=== PATIENT | female | born 2000 | race Caucasian/White ===

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

== ENCOUNTER 2020-02-15 22:01 | Emergency (ER) | payer BC ==
[2020-02-15 22:45] VITALS: BP 126/81; PULSE 95
[2020-02-15] MEDS ORDERED: Sodium Chloride 0.9% 10 ML Syringe FLUSH PRN (22:53)
[2020-02-15] MEDS ORDERED: Dexamethasone 4 MG/ML SDV IVPUSH ONE (22:55)
[2020-02-15] MEDS ORDERED: Ondansetron 4 MG/2 ML SDV IVPUSH ONE (22:55)
[2020-02-15] MEDS ORDERED: Acetaminophen 325 MG Tab PO ONE (22:56)
[2020-02-15] MEDS ORDERED: Sodium Chloride 0.9% 1,000 ML IV SCH (23:00)
--- NOTE | 2020-02-15 23:38 | EDM.PDOC ---
ED HPI GENERAL MEDICAL PROBLEM - General Chief Complaint: Neurological Problem Stated Complaint: L SIDE WEAKNESS Time Seen by Provider: 02/15/20 22:39 Source of Information: Reports: Patient, RN Notes Reviewed - History of Present Illness INITIAL COMMENTS - FREE TEXT/NARRATIVE: 19 yr old female with onset of throbbing Celeste, numbness, weakness LUE and LLE. She is nauseated but has not been vomiting. She states she does get frequent Celeste's. She was feeling fine earlier today. She had similar sx 3 days ago but less severe and sx resolved on their own with rest and time. No cough, sore throat, fever, chills or difficulty breathing. She states she was lying in bed when sx started this evening. She first felt "warm, lightheaded like she was about to pass out" and than the Celeste and L sided sx started. Her vision was blurry but that is now back to nl. - Related Data Allergies Allergy/AdvReac Type Severity Reaction Status Date / Time No Known Allergies Allergy Verified 09/10/16 16:31 Home Meds: Home Meds Ondansetron [Zofran ODT] 4 mg PO Q6H PRN #20 tab.dis 09/10/16 [Rx] traMADol [Ultram] 50 - 100 mg PO Q6H PRN #20 tablet 09/10/16 [Rx] Past Medical History - Past Health History Medical/Surgical History: Denies Medical/Surgical History Respiratory History: Reports: Other (See Below) Other Respiratory History: sports induced asthma APPLIED RESEARCH DIRECTOR History: Reports: None Musculoskeletal History: Reports: Other (See Below) Other Musculoskeletal History: scoliosis Psychiatric History: Reports: None - Infectious Disease History Infectious Disease History: Reports: Influenza Other Infectious Disease History: influenza B 2017 - Past Surgical History Respiratory Surgical History: Reports: None Social & Family History - Caffeine Use Caffeine Use: Reports: Coffee, Energy Drinks ED ROS GENERAL - Review of Systems Review Of Systems: See Below Constitutional: Denies: Fever, Chills, Diaphoresis HEENT: Reports: Vision Change. Denies: Ear Pain, Throat Pain, Vertigo Respiratory: Denies: Shortness of Breath, Pleuritic Chest Pain, Cough Cardiovascular: Reports: Chest Pain (chest did feel tight, now better), Palpitations (gone) GI/Abdominal: Reports: Nausea. Denies: Abdominal Pain, Diarrhea, Vomiting Musculoskeletal: Reports: No Symptoms Skin: Reports: No Symptoms Neurological: Reports: Dizziness, Headache, Numbness, Tingling, Weakness. Denies: Trouble Speaking, Difficulty Walking, Change in Speech ED EXAM, NEURO - Physical Exam Exam: See Below General Appearance: Alert, No Apparent Distress Eye Exam: Bilateral Eye: PERRL, Other (EOM nl) Nose: Normal Inspection Throat/Mouth: Normal Inspection Head Exam: Atraumatic. No: Facial Swelling Neck: Supple Respiratory/Chest: No Respiratory Distress, Lungs Clear, Normal Breath Sounds Cardiovascular: Regular Rate, Rhythm GI/Abdominal: Soft, Non-Tender Neurological: Alert, Oriented x 3, Other (No facial droop, LUE and LLE weak) Back Exam: No: CVA Tenderness (L), CVA Tenderness (R) Extremities: Normal Inspection. No: Pedal Edema, Leg Pain, Redness Skin Exam: Warm, Dry, Normal Color, No Rash Course - Vital Signs Last Recorded V/S: Last Vital Signs Temp 97.2 F 02/15/20 22:41 Pulse 95 02/15/20 22:41 Resp 20 02/15/20 22:41 BP 126/81 02/15/20 22:41 Pulse Ox 99 02/15/20 22:41 - Orders/Labs/Meds Orders: Active Orders 24 hr Category Date Time Status Head wo Cont [CT] Stat Exams 02/15/20 22:54 Taken Peripheral IV Insertion Adult [OM.PC] Stat Oth 02/15/20 22:53 Ordered Labs: Laboratory Tests 02/15/20 02/15/20 02/15/20 Range/Units 22:53 23:03 23:03 WBC 12.11 H (3.98-10.04) K/mm3 RBC 5.01 (3.98-5.22) M/mm3 Hgb 14.1 (11.2-15.7) gm/dl Hct 42.8 (34.1-44.9) % MCV 85.4 (79.4-94.8) fl MCH 28.1 (25.6-32.2) pg MCHC 32.9 (32.2-35.5) g/dl RDW Std Deviation 42.4 (36.4-46.3) fL Plt Count 274 (182-369) K/mm3 MPV 9.7 (9.4-12.3) fl Neut % (Auto) 62.2 (34.0-71.1) % Lymph % (Auto) 24.4 (19.3-51.7) % [place]are % (Auto) 11.0 (4.7-12.5) % Eos % (Auto) 1.9 (0.7-5.8) Baso % (Auto) 0.3 (0.1-1.2) % Neut # (Auto) 7.53 H (1.56-6.13) K/mm3 Lymph # (Auto) 2.96 (1.18-3.74) K/mm3 Dare # (Auto) 1.33 H (0.24-0.36) K/mm3 Eos # (Auto) 0.23 (0.04-0.36) K/mm3 Baso # (Auto) 0.04 (0.01-0.08) K/mm3 Manual Slide Review Normal smear Sodium 138 (136-145) mEq/L Potassium 3.5 (3.5-5.1) mEq/L Chloride 103 (98-107) mEq/L Carbon Dioxide 30 (21-32) mEq/L Anion Gap 8.5 (5-15) BUN 9 (7-18) mg/dL Creatinine 0.9 (0.55-1.02) mg/dL Est Cr Clr Drug Dosing 97.77 mL/min Estimated GFR (MDRD) > 60 (>60) mL/min BUN/Creatinine Ratio 10.0 L (14-18) Glucose 94 (74-106) mg/dL Calcium 9.1 (8.5-10.1) mg/dL Ferritin (8-252) ng/ml Total Bilirubin 0.2 (0.2-1.0) mg/dL AST 21 (15-37) U/L ALT 19 (14-59) U/L Alkaline Phosphatase 94 (46-116) U/L Total Protein 7.4 (6.4-8.2) g/dl Albumin 3.7 (3.4-5.0) g/dl Globulin 3.7 gm/dL Albumin/Globulin Ratio 1.0 (1-2) Urine Color Light yellow (Yellow) Urine Appearance Clear (Clear) Urine pH 7.0 (5.0-8.0) Ur Specific [place] 1.015 (1.005-1.030) Urine Protein Negative (Negative) Urine Glucose (UA) Negative (Negative) Urine Ketones Negative (Negative) Urine Occult Blood Negative (Negative) Urine Nitrite Negative (Negative) Urine Bilirubin Negative (Negative) Urine Urobilinogen 0.2 (0.2-1.0) Ur Leukocyte Esterase Negative (Negative) 02/15/20 Range/Units 23:03 WBC (3.98-10.04) K/mm3 RBC (3.98-5.22) M/mm3 Hgb (11.2-15.7) gm/dl Hct (34.1-44.9) % MCV (79.4-94.8) fl MCH (25.6-32.2) pg MCHC (32.2-35.5) g/dl RDW Std Deviation (36.4-46.3) fL Plt Count (182-369) K/mm3 MPV (9.4-12.3) fl Neut % (Auto) (34.0-71.1) % Lymph % (Auto) (19.3-51.7) % [place]are % (Auto) (4.7-12.5) % Eos % (Auto) (0.7-5.8) Baso % (Auto) (0.1-1.2) % Neut # (Auto) (1.56-6.13) K/mm3 Lymph # (Auto) (1.18-3.74) K/mm3 Dare # (Auto) (0.24-0.36) K/mm3 Eos # (Auto) (0.04-0.36) K/mm3 Baso # (Auto) (0.01-0.08) K/mm3 Manual Slide Review Sodium (136-145) mEq/L Potassium (3.5-5.1) mEq/L Chloride (98-107) mEq/L Carbon Dioxide (21-32) mEq/L Anion Gap (5-15) BUN (7-18) mg/dL Creatinine (0.55-1.02) mg/dL Est Cr Clr Drug Dosing mL/min Estimated GFR (MDRD) (>60) mL/min BUN/Creatinine Ratio (14-18) Glucose (74-106) mg/dL Calcium (8.5-10.1) mg/dL Ferritin 32 (8-252) ng/ml Total Bilirubin (0.2-1.0) mg/dL AST (15-37) U/L ALT (14-59) U/L Alkaline Phosphatase (46-116) U/L Total Protein (6.4-8.2) g/dl Albumin (3.4-5.0) g/dl Globulin gm/dL Albumin/Globulin Ratio (1-2) Urine Color (Yellow) Urine Appearance (Clear) Urine pH (5.0-8.0) Ur Specific [place] (1.005-1.030) Urine Protein (Negative) Urine Glucose (UA) (Negative) Urine Ketones (Negative) Urine Occult Blood (Negative) Urine Nitrite (Negative) Urine Bilirubin (Negative) Urine Urobilinogen (0.2-1.0) Ur Leukocyte Esterase (Negative) Meds: Medications Discontinued Medications Generic Name Dose Route Start Last Admin Trade Name Freq PRN Reason Stop Dose Admin Acetaminophen 975 mg 02/15/20 22:56 02/15/20 23:23 Tylenol PO 02/15/20 22:57 975 mg NOW ONE Administration Dexamethasone 4 mg 02/15/20 22:55 02/15/20 23:24 Dexamethasone IVPUSH 02/15/20 22:56 4 mg ONETIME ONE Administration Diphenhydramine HCl 25 mg 02/16/20 00:08 02/16/20 00:24 Benadryl IVPUSH 02/16/20 00:09 25 mg ONETIME ONE Administration Sodium Chloride 1,000 mls @ 999 mls/hr 02/15/20 23:00 02/15/20 23:24 Normal Saline IV 999 mls/hr ONETIME SILVIA Administration Ketorolac Tromethamine 30 mg 02/16/20 00:15 02/16/20 00:25 Toradol IVPUSH 30 mg ONETIME SILVIA Administration Metoclopramide HCl 5 mg 02/16/20 00:08 02/16/20 00:25 Reglan IVPUSH 02/16/20 00:09 5 mg ONETIME ONE Administration Ondansetron HCl 4 mg 02/15/20 22:55 02/15/20 23:24 Zofran IVPUSH 02/15/20 22:56 4 mg ONETIME ONE Administration Sodium Chloride 10 ml 02/15/20 22:53 02/15/20 23:24 Saline Flush FLUSH 10 ml ASDIRECTED PRN Administration Keep Vein Open - Re-Assessments/Exams Free Text/Narrative Re-Assessment/Exam: 02/16/20 01:[address] was nl. upon rexam at around 22:15 numbness was almost gone, LUE and LLE weakness gone. Celeste still moderate, will give further meds for Celeste. Have also scheduled for outpatient MRI. Discharge instr. as documented. Departure - Departure Time of Disposition: 00:30 Disposition: Home, Self-Care 01 Condition: Fair Clinical Impression: Paresthesias Migraine Qualifiers: Migraine type: unspecified Status migrainosus presence: without status migr ainosus Intractability: not intractable Qualified Code(s): G43.909 - Migraine, unspecified, not intractable, without status migrainosus - Discharge Information Instructions: Migraine Headache, [id number], Paresthesia, Hyix-ne-Deap Referrals: Maggie Chung PA-C [Primary Care Provider] - Forms: ED Department Discharge Additional Instructions: Rest, you have been given sedating meds while here in the ED, no driving until noon today. Order has been submitted to radiology for MRI of head. Radiology will call you in AM to set up a time for that. Follow up with Maggie at our [facility] for results, further treatment as needed. Return to ED as needed if symptoms worsening in any way. Sepsis Event Note (ED) - Evaluation Sepsis Screening Result: No Definite Risk - Focused Exam Vital Signs: Vital Signs Temp Pulse Resp BP Pulse Ox 02/15/20 22:41 97.2 F 95 20 126/81 99 - My Orders Last 24 Hours: My Active Orders 02/15/20 22:53 Peripheral IV Insertion Adult [OM.PC] Stat 02/15/20 22:54 Head wo Cont [CT] Stat - Assessment/Plan Last 24 Hours: My Active Orders 02/15/20 22:53 Peripheral IV Insertion Adult [OM.PC] Stat 02/15/20 22:54 Head wo Cont [CT] Stat
[2020-02-16] MEDS ORDERED: diphenhydrAMINE 50 MG/ML SDV IVPUSH ONE (00:08)
[2020-02-16] MEDS ORDERED: Metoclopramide 10 MG/2 ML SDV IVPUSH ONE (00:08)
[2020-02-16] MEDS ORDERED: Ketorolac 30 MG/ML SDV IVPUSH SCH (00:15)
--- NOTE | 2020-02-16 07:34 | CT ---
Head CT Technique: Multiple axial sections through the brain were obtained. Intravenous contrast was not utilized. Comparison: No prior intracranial imaging is available Findings: Ventricles along with basal cisterns and sulci over the convexities are within normal limits for the patient's age. No abnormal parenchymal densities are seen. No evidence of intracranial hemorrhage. No midline shift or mass-effect is seen. Bone window settings were reviewed which shows no acute abnormality seen within the visualized mastoid or paranasal sinuses. No acute calvarial finding is seen. Impression: 1. Nothing acute is identified on noncontrasted CT exam. Diagnostic code #1 This report was dictated in MDT I agree with preliminary report from catherine, finalized on 02/16/20, 12:32 AM Central Daylight Time
== END 2020-02-16 00:35 | disposition home or self-care (01) ==
LOC: JD.ED 22:01
DX: G43.909 Migraine, unspecified, not intractable, without status migrainosus (principal); R20.2 Paresthesia of skin; J45.909 Unspecified asthma, uncomplicated
CPT/HCPCS: 36415; 70450; 80053; 81003; 82728; 85025; 96374; 96375; 99284; A9270; J1100; J1200; J1885; J2405; J2765; J7030

== ENCOUNTER 2022-01-30 20:06 | Emergency (ER) | payer BC ==
[2022-01-30 21:10] VITALS: BP 124/71; PULSE 67
[2022-01-30] MEDS ORDERED: Ketorolac 15 MG/ML SDV IVPUSH ONE (21:40)
[2022-01-30] MEDS ORDERED: Metoclopramide 10 MG/2 ML SDV IVPUSH ONE (21:40)
[2022-01-30] MEDS ORDERED: diphenhydrAMINE 50 MG/ML SDV IVPUSH ONE (21:40)
[2022-01-30] MEDS ORDERED: Iopamidol 755 Mg/ML 100 ML Bottle IVPUSH ONE ×2 (23:27)
[2022-01-30] MEDS ORDERED: Sodium Chloride 0.9% 100 ML IV SCH ×2 (23:30)
== END 2022-01-30 23:18 | disposition home or self-care (01) ==
LOC: JD.ED 20:06
DX: G43.909 Migraine, unspecified, not intractable, without status migrainosus (principal); R53.1 Weakness; Z79.899 Other long term (current) drug therapy
CPT/HCPCS: 36415; 70450; 70496; 70498; 80053; 82947; 83735; 85025; 93005; 96374; 96375; 99285; J1200; J1885; J2765; Q9967

== ENCOUNTER 2022-06-30 23:00 | Emergency (ER) | payer BC ==
[2022-06-30 23:10] VITALS: BP 139/101; PULSE 103
[2022-06-30] MEDS ORDERED: Ibuprofen 800 MG Tab PO ONE (23:17)
[2022-06-30] MEDS ORDERED: predniSONE 20 MG Tab PO ONE (23:18)
== END 2022-07-01 00:46 | disposition home or self-care (01) ==
LOC: JD.ED 23:00
DX: R07.89 Other chest pain (principal); Z79.899 Other long term (current) drug therapy
CPT/HCPCS: 71045; 93005; 99285; A9270; J7512

== ENCOUNTER 2022-07-07 16:19 | Emergency (ER) | payer BC ==
[2022-07-07 16:59] VITALS: BP 132/96; PULSE 88
[2022-07-07] MEDS ORDERED: Ketorolac 60 MG/2 ML SDV IM ONE (17:49)
== END 2022-07-07 18:17 | disposition home or self-care (01) ==
LOC: JD.ED 16:19
DX: S93.401A Sprain of unspecified ligament of right ankle, initial encounter (principal); W00.0XXA Fall on same level due to ice and snow, initial encounter; Y93.E9 Activity, other interior property and clothing maintenance; Y92.009 Unspecified place in unspecified non-institutional (private) residence as the place of occurrence of the external cause
CPT/HCPCS: 73610; 96372; 99283; J1885